=== PATIENT | male | born 1950 | race American Indian/Alaskan Native ===

== ENCOUNTER 2017-03-08 12:20 | Outpatient (CLI) | payer OTHER ==
--- NOTE | 2017-03-08 16:42 | XRay Report ---
LUMBAR SPINE WITH OBLIQUES 5 VIEWS: 03/08/17 12:20:00 CLINICAL: Back pain and prostate cancer. FINDINGS: Mild levoscoliosis centered at L1-2. Normal vertebral body height and alignment. Osteophytes are most prominent at L1 to, L2-3 and L4-5. Lower lumbar facet joint sclerosis. The pedicles are intact. No suspicious bone lesion is identified. Mild calcification of the abdominal aorta. IMPRESSION: Scoliosis and multilevel degenerative change, greatest at L2-3 and L1-2. No evidence of metastasis.
== END 2017-03-08 12:21 | disposition home or self-care (01) ==
LOC: XRAY 12:20
PROVIDERS: ATTEND Internal Medicine
DX: M47.896 Other spondylosis, lumbar region (principal); M41.86 Other forms of scoliosis, lumbar region; M25.78 Osteophyte, vertebrae; Z68.30 Body mass index [BMI] 30.0-30.9, adult; I70.0 Atherosclerosis of aorta; C61 Malignant neoplasm of prostate
CPT/HCPCS: 72110

== ENCOUNTER 2018-12-26 07:27 | Emergency (ER) | payer OTHER ==
[2018-12-26] MEDS ORDERED: ANTIVERT PO ONE (10:22)
[2018-12-26] MEDS ORDERED: NACL 0.9% 1000 ML 1,000 ML IV ONE (10:22)
--- NOTE | 2018-12-26 10:27 | Emergency Department Report ---
ED Dizziness HPI - General Chief Complaint: Dizziness Stated Complaint: DIZZY Time Seen by Provider: 12/26/18 10:13 Source: patient Mode of arrival: Stretcher Limitations: No Limitations - History of Present Illness Initial Comments: 68-year-old male presents to ED with complaint of dizziness since this morning. Patient states he went to bed last night feeling okay. However, when he awoke at 6 AM this morning, he felt as if the room was spinning. The patient states when he got up from bed to walk to the bathroom, his dizziness was slightly improved. However when he laid down in bed again he felt as if the room was spinning again. Patient denies headache. Denies nausea or vomiting. Denies recent URI symptoms or congestion. MD Complaint: dizziness -: This morning Timing: awoke with symptoms Description: "room spinning" History of Same: No History of Trauma: No Severity: moderate Worsens With: position Associated Symptoms: denies: chest pain, confusion, fever/chills, shortness of breath - Related Data Previous Rx's Medication Instructions Recorded Last Taken Type Ibuprofen [Motrin 600 MG tab] 600 mg PO Q8H #15 tablet 10/20/18 Unknown Rx Sulfamethoxazole/Trimethoprim 1 each PO BID #14 tablet 10/20/18 Unknown Rx [Bactrim DS TAB] Amoxicillin/K Clav Tab [Augmentin 1 tab PO Q12HR 10 Days #20 tab 12/26/18 Unknown Rx 875 mg] Meclizine [Antivert] 25 mg PO TID PRN #20 tablet 12/26/18 Unknown Rx Allergies Allergy/AdvReac Type Severity Reaction Status Date / Time No Known Allergies Allergy Verified 12/26/18 07:40 ED Review of Systems ROS: Stated complaint: DIZZY Other details as noted in HPI Comment: All other systems reviewed and negative Constitutional: denies: chills, fever ENT: denies: congestion Respiratory: denies: shortness of breath Cardiovascular: denies: chest pain, palpitations Gastrointestinal: denies: nausea, vomiting Neurological: vertigo. denies: headache, weakness, numbness, paresthesias ED Past Medical Hx - Past Medical History Hx Diabetes: Yes - Surgical History Additional Surgical History: 2009 Prostate removal cx - Social History Smoking Status: Never Smoker Substance Use Type: None - Medications Home Medications: Home Medications Medication Instructions Recorded Confirmed Last Taken Type Ibuprofen [Motrin 600 MG tab] 600 mg PO Q8H #15 tablet 10/20/18 Unknown Rx Sulfamethoxazole/Trimethoprim 1 each PO BID #14 tablet 10/20/18 Unknown Rx [Bactrim DS TAB] Amoxicillin/K Clav Tab [Augmentin 1 tab PO Q12HR 10 Days #20 tab 12/26/18 Unknown Rx 875 mg] Meclizine [Antivert] 25 mg PO TID PRN #20 tablet 12/26/18 Unknown Rx ED Physical Exam - General Limitations: No Limitations General appearance: alert, in no apparent distress - Head Head exam: Present: atraumatic, normocephalic - Eye Eye exam: Present: normal appearance. Absent: nystagmus - ENT ENT exam: Present: mucous membranes moist - Neck Neck exam: Present: normal inspection - Respiratory Respiratory exam: Present: normal lung sounds bilaterally. Absent: respiratory distress - Cardiovascular Cardiovascular Exam: Present: regular rate, normal rhythm - GI/Abdominal GI/Abdominal exam: Present: soft. Absent: distended, tenderness - Extremities Exam Extremities exam: Present: normal inspection - Neurological Exam Neurological exam: Present: alert, oriented X3, CN II-XII intact, normal gait. Absent: motor sensory deficit - Psychiatric Psychiatric exam: Present: normal affect, normal mood - Skin Skin exam: Present: warm, dry, intact, normal color ED Course Vital Signs 12/26/18 12/26/18 12/26/18 07:37 07:40 07:45 Temperature 98.2 F Pulse Rate 67 67 60 Respiratory 12 16 12 Rate Blood Pressure 129/67 133/63 O2 Sat by Pulse 97 96 Oximetry 12/26/18 12/26/18 12/26/18 08:00 08:15 08:30 Temperature Pulse Rate 57 L 59 L 67 Respiratory 13 16 13 Rate Blood Pressure 123/58 128/59 147/68 O2 Sat by Pulse 95 99 100 Oximetry 12/26/18 12/26/18 12/26/18 08:34 08:46 09:00 Temperature Pulse Rate 57 L 66 Respiratory 18 14 12 Rate Blood Pressure 147/57 131/63 O2 Sat by Pulse 98 99 Oximetry 12/26/18 12/26/18 12/26/18 09:15 09:30 09:45 Temperature Pulse Rate 71 67 65 Respiratory 10 L 12 12 Rate Blood Pressure 137/83 128/75 132/84 O2 Sat by Pulse 100 98 100 Oximetry 12/26/18 12/26/18 12/26/18 10:00 10:16 10:30 Temperature Pulse Rate 64 72 67 Respiratory 15 16 14 Rate Blood Pressure 137/72 144/78 139/79 O2 Sat by Pulse 98 100 98 Oximetry 12/26/18 12/26/18 12/26/18 10:45 11:00 11:15 Temperature Pulse Rate 64 67 65 Respiratory 10 L 13 10 L Rate Blood Pressure 122/73 133/76 129/85 O2 Sat by Pulse Oximetry 12/26/18 12/26/18 11:30 11:46 Temperature Pulse Rate 66 64 Respiratory 16 17 Rate Blood Pressure 136/76 142/72 O2 Sat by Pulse Oximetry - Reevaluation(s) Reevaluation #1: 12/26/18 13:42 Patient feeling much better following meclizine and IV fluids. Patient ambulated around ER w/ RN. No gait abnormalities, pt ambulated well. Denies any dizziness at this time. CT shows acute sinusitis. Patient sounds nasally congested when speaking to him. Will d/c home with antibiotics and meclizine. ED Medical Decision Making - Lab Data Result diagrams: 12/26/18 10:26 12/26/18 10:26 - EKG Data -: EKG Interpreted by Me EKG shows normal: sinus rhythm, axis, intervals, QRS complexes, ST-T waves Rate: normal - EKG Data Interpretation: no acute changes - Radiology Data Radiology results: report reviewed, image reviewed - Differential Diagnosis CVA, benign positional vertigo, sinusitis Critical care attestation.: If time is entered above; I have spent that time in minutes in the direct care of this critically ill patient, excluding procedure time. ED Disposition Clinical Impression: Vertigo, Sinusitis, acute Disposition: DC-01 TO HOME OR SELFCARE Is pt being admited?: No Condition: Stable Instructions: Sinusitis (ED), Benign Paroxysmal Positional Vertigo (ED) Prescriptions: Amoxicillin/K Clav Tab [Augmentin 875 mg] 1 tab PO Q12HR 10 Days #20 tab Meclizine [Antivert] 25 mg PO TID PRN #20 tablet PRN Reason: Vertigo Referrals: EMMA VARELA MD [Primary Care Provider] - 3-5 Days PRIMARY CARE, [Referring] - 3-5 Days ANGELA LORD MD [Staff Physician] - 3-5 Days Time of Disposition: 13:46
[2018-12-26 10:41] LABS: Basophils # (Auto) 0.1 K/mm3 (0.0-0.1); Basophils % (Auto) 0.9 % (0.0-1.8); Eosinophils # (Auto) 0.1 K/mm3 (0.0-0.4); Eosinophils % (Auto) 1.7 % (0.0-4.3); Hematocrit 41.7 % (35.5-45.6); Hemoglobin 13.4 gm/dl (11.8-15.2); Lymphocytes # (Auto) 1.5 K/mm3 (1.2-5.4); Lymphocytes % (Auto) 21.8 % (13.4-35.0); Mean Corpuscular HGB Conc 32 % (32-34); Mean Corpuscular Volume 77 fl (84-94); Monocytes # (Auto) 0.7 K/mm3 (0.0-0.8); Monocytes % (Auto) 9.7 % (0.0-7.3); Platelet Count 212 K/mm3 (140-440); Red Blood Count 5.41 M/mm3 (3.65-5.03); Red Cell Distribution Width 15.3 % (13.2-15.2)
[2018-12-26 10:57] LABS: BUN/Creatinine Ratio 19; Blood Urea Nitrogen 17 mg/dL (9-20); Calcium 9.3 mg/dL (8.4-10.2); Hemolysis Index 6
[2018-12-26 10:59] LABS: Bilirubin,Urine NEG (Negative); Blood,Urine SM (Negative); Color,Urine Yellow (Yellow); Mucus,Urine FEW /HPF; Protein,Urine <15 mg/dL mg/dL (Negative); Urobilinogen,Urine < 2.0 mg/dL (<2.0)
[2018-12-26 11:56] VITALS: BP 142/72
--- NOTE | 2018-12-26 13:33 | Cat Scan Report ---
FINAL REPORT EXAM: CT HEAD WO CONTRAST HISTORY: HEADACHE TECHNIQUE: CT examination of the head without IV contrast PRIORS: None. FINDINGS: Scattered slight mucosal thickening ethmoid and maxillary sinuses. Slight mucosal thickening sphenoid sinuses. Suggestion of prior maxillary sinus surgery with partial absence of the medial wall bilater ally. Small fluid level present in the anterior right ethmoid sinus and posterior right sphenoid sinu s. Bone windows demonstrate no acute fracture. There is ventricular and sulcal prominence compatible with global cerebrocortical atrophy. The brain contains no mass, mass effect, hemorrhage, or acute infarct. There is no extra-axial intracranial bleed, brain bleed, or midline shift. IMPRESSION: No acute CVA, intracranial bleed, or brain mass Multifocal paranasal sinus mucosal thickening with suggestion of prior maxillary sinus surgery Nonspecific small fluid levels in the anterior right ethmoid sinus and posterior right sphenoid sinus may reflect acute sinusitis
== END 2018-12-26 13:56 | disposition home or self-care (01) ==
LOC: ED 07:27
DX: R42 Dizziness and giddiness (principal); J01.90 Acute sinusitis, unspecified
CPT/HCPCS: 36415; 70450; 80048; 81001; 85025; 93005; 93010; 96360; 99284; J7030

== ENCOUNTER 2019-01-27 11:07 | Emergency (ER) | payer MEDICARE, OTHER ==
--- NOTE | 2019-01-27 12:07 | Emergency Department Report ---
ED Dizziness HPI - General Chief Complaint: Dizziness Stated Complaint: DIZZINESS Time Seen by Provider: 01/27/19 11:52 Source: patient Mode of arrival: Ambulatory Limitations: No Limitations - History of Present Illness Initial Comments: Patient is 68 years old male with history of diabetes. Patient presented to the emergency room complaining of dizziness that is started two month ago. Patient stated that dizziness is started when he awakened in the middle of the night when he went to the bathroom. Patient denied any chest pain or shortness of b reath. No weakness numbness or tingling sensation. Patient was seen here a few weeks ago for the same complaint for which workup which included a CT of head was negative. Patient follow up with his ENT doctor. Patient walking in the hallway without any difficulty or dizziness. MD Complaint: dizziness -: month(s) (2) Timing: sudden onset Description: "room spinning" History of Same: Yes History of Trauma: No Severity: mild Improves With: remaining still Associated Symptoms: denies other symptoms - Related Data Previous Rx's Medication Instructions Recorded Last Taken Type Ibuprofen [Motrin 600 MG tab] 600 mg PO Q8H #15 tablet 10/20/18 Unknown Rx Sulfamethoxazole/Trimethoprim 1 each PO BID #14 tablet 10/20/18 Unknown Rx [Bactrim DS TAB] Amoxicillin/K Clav Tab [Augmentin 1 tab PO Q12HR 10 Days #20 tab 12/26/18 Unknown Rx 875 mg] Meclizine [Antivert] 25 mg PO TID PRN #20 tablet 12/26/18 Unknown Rx Prednisone [predniSONE 10 mg 10 mg PO .TAPER #1 tab.ds.pk 01/27/19 Unknown Rx (6-Day Pack, 21 Tabs)] Allergies Allergy/AdvReac Type Severity Reaction Status Date / Time No Known Allergies Allergy Verified 01/27/19 11:08 ED Review of Systems ROS: Stated complaint: DIZZINESS Other details as noted in HPI Comment: All other systems reviewed and negative Constitutional: denies: chills, fever ENT: congestion Respiratory: denies: cough, orthopnea, shortness of breath, SOB with exertion, SOB at rest, wheezing Cardiovascular: denies: chest pain, palpitations Gastrointestinal: denies: abdominal pain, nausea, vomiting Neurological: vertigo. denies: headache, weakness, numbness, paresthesias, confusion ED Past Medical Hx - Past Medical History Hx Diabetes: Yes - Surgical History Additional Surgical History: 2009 Prostate removal cx - Social History Smoking Status: Never Smoker Substance Use Type: None - Medications Home Medications: Home Medications Medication Instructions Recorded Confirmed Last Taken Type Ibuprofen [Motrin 600 MG tab] 600 mg PO Q8H #15 tablet 10/20/18 Unknown Rx Sulfamethoxazole/Trimethoprim 1 each PO BID #14 tablet 10/20/18 Unknown Rx [Bactrim DS TAB] Amoxicillin/K Clav Tab [Augmentin 1 tab PO Q12HR 10 Days #20 tab 12/26/18 Unknown Rx 875 mg] Meclizine [Antivert] 25 mg PO TID PRN #20 tablet 12/26/18 Unknown Rx Prednisone [predniSONE 10 mg 10 mg PO .TAPER #1 tab.ds.pk 01/27/19 Unknown Rx (6-Day Pack, 21 Tabs)] ED Physical Exam - General Limitations: No Limitations General appearance: alert, in no apparent distress - Head Head exam: Present: atraumatic, normocephalic, normal inspection - Eye Eye exam: Present: normal appearance, PERRL - ENT ENT exam: Present: mucous membranes dry, mucous membranes moist, other (serous otitis media) - Neck Neck exam: Present: normal inspection. Absent: tenderness, meningismus - Respiratory Respiratory exam: Present: normal lung sounds bilaterally - Cardiovascular Cardiovascular Exam: Present: regular rate, normal rhythm, normal heart sounds - GI/Abdominal GI/Abdominal exam: Present: soft, normal bowel sounds. Absent: distended, tenderness, guarding, rigid, organomegaly, mass, bruit, pulsatile mass, hernia - Extremities Exam Extremities exam: Present: normal inspection, full ROM, normal capillary refill. Absent: tenderness, pedal edema, joint swelling - Back Exam Back exam: Present: normal inspection, full ROM. Absent: tenderness, CVA tenderness (R), CVA tenderness (L), muscle spasm, paraspinal tenderness, vertebral tenderness - Neurological Exam Neurological exam: Present: alert, oriented X3, CN II-XII intact, normal gait, reflexes normal. Absent: abnormal gait - Psychiatric Psychiatric exam: Present: normal mood - Skin Skin exam: Present: warm, intact, normal color ED Course Vital Signs 01/27/19 11:22 Temperature 97.8 F Pulse Rate 87 Respiratory 20 Rate Blood Pressure 156/91 O2 Sat by Pulse 99 Oximetry ED Medical Decision Making - Medical Decision Making Patient is 68 years old male with history of diabetes. Patient presented to the emergency room complaining of dizziness that is started. Patient stated that dizziness is started when he awakened in the middle of them I explained to the bathroom. Patient denied any chest pain or shortness of breath. No weakness numbness or tingling sensation. Patient was seen here a few weeks ago for the same complaint for which workup which included a CT of head was negative. Patient follow up with his ENT doctor. Patient walking in the hallway without any difficulty or dizziness. Previous medical records reviewed. Patient exam showed a left serous otitis media. I will start patient on prednisone and advised the patient to follow-up with his primary care physician and if symptoms continued patient need to follow up with A neurologist. Critical care attestation.: If time is entered above; I have spent that time in minutes in the direct care of this critically ill patient, excluding procedure time. ED Disposition Clinical Impression: Dizziness, Otitis media, acute serous Disposition: - TO HOME OR SELFCARE Is pt being admited?: No Condition: Stable Instructions: Dizziness (ED) Prescriptions: Prednisone [predniSONE 10 mg (6-Day Pack, 21 Tabs)] 10 mg PO .TAPER #1 tab.ds.pk Referrals: [facility] [Primary Care Provider] - 3-5 Days Forms: Work/School Release Form(ED)
== END 2019-01-27 12:19 | disposition home or self-care (01) ==
LOC: ED 11:07
CPT/HCPCS: 99282

== ENCOUNTER 2019-02-02 01:16 | Emergency (ER) | payer OTHER ==
--- NOTE | 2019-02-02 07:06 | Cat Scan Report ---
PROCEDURE: CT HEAD/BRAIN WO CON TECHNIQUE: Routine axial imaging was obtained of the brain without IV contrast. HISTORY: persistent vertigo COMPARISONS: 12/26/2018 FINDINGS: There is no evidence of acute stroke or hemorrhage. The ventricular system is appropriate in size and is symmetric. The sinuses revealed postsurgical changes involving the ethmoid air cells and maxillar y sinuses. The mastoid air cells are well pneumatized. The calvarium appears intact. IMPRESSION: No acute intracranial process. This document is electronically signed by José Esparza MD., February 02 2019 07:03:42 AM ET
[2019-02-02 07:10] LABS: Basophils % (Auto) 0.5 % (0.0-1.8); Eosinophils # (Auto) 0.1 K/mm3 (0.0-0.4); Hematocrit 37.9 % (35.5-45.6); Hemoglobin 12.5 gm/dl (11.8-15.2); Lymphocytes # (Auto) 2.2 K/mm3 (1.2-5.4); Lymphocytes % (Auto) 32.2 % (13.4-35.0); Mean Corpuscular HGB Conc 33 % (32-34); Mean Corpuscular Volume 78 fl (84-94); Monocytes # (Auto) 0.7 K/mm3 (0.0-0.8); Monocytes % (Auto) 9.7 % (0.0-7.3); Platelet Count 204 K/mm3 (140-440); Red Blood Count 4.89 M/mm3 (3.65-5.03); Red Cell Distribution Width 15.5 % (13.2-15.2)
--- NOTE | 2019-02-02 07:20 | XRay Report ---
PROCEDURE: XR CHEST 1V AP TECHNIQUE: A portable upright view of the chest was obtained. HISTORY: posterior CP COMPARISONS: 05/07/2010 FINDINGS: The heart size and mediastinum appear normal. The lungs are clear. Pleural fluid is not seen. IMPRESSION: No acute cardiopulmonary process.. This document is electronically signed by José Esparza MD., February 02 2019 07:18:03 AM ET
[2019-02-02 07:37] LABS: Alanine Aminotransferase 18 units/L (7-56); Albumin 3.6 g/dL (3.9-5)
[2019-02-02 07:38] LABS: Bilirubin,Direct < 0.2 mg/dL (0-0.2)
[2019-02-02 07:42] LABS: BUN/Creatinine Ratio 17; Blood Urea Nitrogen 19 mg/dL (9-20); Calcium 8.6 mg/dL (8.4-10.2); Hemolysis Index 3
[2019-02-02 09:07] LABS: Bilirubin,Urine NEG (Negative); Blood,Urine NEG (Negative); Color,Urine Straw (Yellow); Mucus,Urine FEW /HPF; Protein,Urine <15 mg/dL mg/dL (Negative); Urobilinogen,Urine < 2.0 mg/dL (<2.0); WBC,Urine < 1.0 /HPF (0.0-6.0)
[2019-02-02 09:21] LABS: Amphetamine Screen,Urine PRESUMPTIVE NEGATIVE; Benzodiazepines Screen,Urine PRESUMPTIVE NEGATIVE; Cannabinoid Screen,Urine PRESUMPTIVE NEGATIVE; Cocaine Screen,Urine PRESUMPTIVE NEGATIVE; Methadone Screen,Urine PRESUMPTIVE NEGATIVE; Opiate Screen,Urine PRESUMPTIVE NEGATIVE
--- NOTE | 2019-02-02 09:49 | Emergency Department Report ---
ED General Adult HPI - General Chief complaint: Dizziness Stated complaint: DIZZINESS Time Seen by Provider: 02/02/19 06:00 Source: patient Mode of arrival: Ambulatory Limitations: Language Barrier - History of Present Illness Initial comments: This is a 68 year old man who was seen here on 6th weakness and vertigo. He states that his symptoms have worsened over the last 24 hours. He states he's been checking his blood sugar because he was previously told he was at type II diabetic and it has been normal as of yesterday. He does not take medicines. He is a somewhat difficult historian but does provide ample history. Eventually he shows me that he has taken all but one of his prednisone pills. He states he has experienced some spinning but there is no spinning now. He does not report any focal weakness or numbness. He denies headache. He denies any facial weakness or tingling. He denies any difficulty with his speech. He is able to walk. He is mainly describing dizziness and vague symptoms. -: Gradual, days(s) Severity scale (0 -10): 0 Consistency: now resolved Associated Symptoms: denies other symptoms - Related Data Previous Rx's Medication Instructions Recorded Last Taken Type Ibuprofen [Motrin 600 MG tab] 600 mg PO Q8H #15 tablet 10/20/18 Unknown Rx Sulfamethoxazole/Trimethoprim 1 each PO BID #14 tablet 10/20/18 Unknown Rx [Bactrim DS TAB] Amoxicillin/K Clav Tab [Augmentin 1 tab PO Q12HR 10 Days #20 tab 12/26/18 Unknown Rx 875 mg] Meclizine [Antivert] 25 mg PO TID PRN #20 tablet 12/26/18 Unknown Rx Prednisone [predniSONE 10 mg 10 mg PO .TAPER #1 tab.ds.pk 01/27/19 Unknown Rx (6-Day Pack, 21 Tabs)] Allergies Allergy/AdvReac Type Severity Reaction Status Date / Time No Known Allergies Allergy Verified 01/27/19 11:08 ED Review of Systems ROS: Stated complaint: DIZZINESS Other details as noted in HPI Constitutional: other (dizziness). denies: chills, fever Eyes: denies: eye pain, eye discharge, vision change ENT: denies: ear pain, throat pain Respiratory: denies: cough, shortness of breath, wheezing Cardiovascular: denies: chest pain, palpitations Endocrine: no symptoms reported Gastrointestinal: denies: abdominal pain, nausea, diarrhea Genitourinary: denies: urgency, dysuria Musculoskeletal: denies: back pain, joint swelling, arthralgia Skin: denies: rash, lesions Neurological: denies: headache, weakness, paresthesias Psychiatric: denies: anxiety, depression Hematological/Lymphatic: denies: easy bleeding, easy bruising ED Past Medical Hx - Past Medical History Hx Diabetes: Yes Additional medical history: Vertigo, Sleep Apnea, Hearing loss, Sinusitis, earlier visit for "benign positional vertigo" - Surgical History Additional Surgical History: 2009 Prostate removal cx - Social History Smoking Status: Never Smoker Substance Use Type: None - Medications Home Medications: Home Medications Medication Instructions Recorded Confirmed Last Taken Type Ibuprofen [Motrin 600 MG tab] 600 mg PO Q8H #15 tablet 10/20/18 Unknown Rx Sulfamethoxazole/Trimethoprim 1 each PO BID #14 tablet 10/20/18 Unknown Rx [Bactrim DS TAB] Amoxicillin/K Clav Tab [Augmentin 1 tab PO Q12HR 10 Days #20 tab 12/26/18 Unknown Rx 875 mg] Meclizine [Antivert] 25 mg PO TID PRN #20 tablet 12/26/18 Unknown Rx Prednisone [predniSONE 10 mg 10 mg PO .TAPER #1 tab.ds.pk 01/27/19 Unknown Rx (6-Day Pack, 21 Tabs)] ED Physical Exam - General Limitations: Language Barrier (mild but able to get ample history) General appearance: alert, in no apparent distress - Head Head exam: Present: atraumatic, normocephalic - Eye Eye exam: Present: normal appearance - ENT ENT exam: Present: mucous membranes moist - Neck Neck exam: Present: normal inspection. Absent: tenderness, meningismus - Respiratory Respiratory exam: Present: normal lung sounds bilaterally. Absent: respiratory distress - Cardiovascular Cardiovascular Exam: Present: regular rate, normal rhythm. Absent: systolic murmur, diastolic murmur, rubs, gallop - GI/Abdominal GI/Abdominal exam: Present: soft, normal bowel sounds. Absent: distended, te nderness, guarding, rebound, rigid - Rectal Rectal exam: Present: deferred - Extremities Exam Extremities exam: Present: normal inspection - Back Exam Back exam: Present: normal inspection - Neurological Exam Neurological exam: Present: alert, oriented X3, CN II-XII intact, other (cerebellar testing was normal). Absent: motor sensory deficit - Psychiatric Psychiatric exam: Present: normal affect, normal mood - Skin Skin exam: Present: warm, dry, intact, normal color. Absent: rash ED Course Vital Signs 02/02/19 02/02/19 02/02/19 01:21 01:39 05:45 Temperature 98.1 F 98.1 F Pulse Rate 68 69 62 Respiratory 18 16 14 Rate Blood Pressure 140/58 140/58 135/73 O2 Sat by Pulse 98 98 Oximetry 02/02/19 02/02/19 02/02/19 06:00 06:15 06:30 Temperature Pulse Rate 60 71 61 Respiratory 14 12 13 Rate Blood Pressure 135/76 135/76 137/74 O2 Sat by Pulse 97 99 96 Oximetry - Reevaluation(s) Reevaluation #1: Patient was found to have a glucose of 200. I believe this is likely related to his prednisone. He believes his symptoms have gotten worse with the prednisone. While it may be reasonable to do further evaluation of the patient's dizziness and the primary care setting I do not think that hospitalization is indicated. He is advised to stop the prednisone as seek further workup with his primary care physician. 02/02/19 11:06 Reevaluation #2: Patient's symptoms have completely resolved in the emergency department and did not recur. 02/02/19 11:09 ED Medical Decision Making - Lab Data Result diagrams: 02/02/19 06:13 02/02/19 06:13 Laboratory Results - last 24 hr 02/02/19 02/02/19 02/02/19 06:13 06:13 06:13 WBC 6.9 RBC 4.89 Hgb 12.5 Hct 37.9 MCV 78 L MCH 26 L MCHC 33 RDW 15.5 H Plt Count 204 Lymph % (Auto) 32.2 [place] % (Auto) 9.7 H Eos % (Auto) 2.0 Baso % (Auto) 0.5 Lymph # 2.2 [place] # 0.7 Eos # 0.1 Baso # 0.0 Seg Neutrophils % 55.6 Seg Neutrophils # 3.8 Sodium 140 Potassium 3.8 Chloride 105.8 Carbon Dioxide 26 Anion Gap 12 BUN 19 Creatinine 1.1 Estimated GFR > 60 BUN/Creatinine Ratio 17 Glucose 200 H Calcium 8.6 Magnesium 2.10 Total Bilirubin < 0.20 Direct Bilirubin < 0.2 Indirect Bilirubin 0.0 AST 10 ALT 18 Alkaline Phosphatase 83 Troponin T < 0.010 Total Protein 6.3 Albumin 3.6 L Albumin/Globulin Ratio 1.3 Urine Color Urine Turbidity Urine pH Ur Specific [place] Urine Protein Urine Glucose (UA) Urine Ketones Urine Blood Urine Nitrite Urine Bilirubin Urine Urobilinogen Ur Leukocyte Esterase Urine WBC (Auto) Urine RBC (Auto) Urine Mucus Urine Opiates Screen Urine Methadone Screen Ur Barbiturates Screen Ur Phencyclidine Scrn Ur Amphetamines Screen U Benzodiazepines Scrn Urine Cocaine Screen U Marijuana (THC) Screen 02/02/19 02/02/19 08:51 08:51 WBC RBC Hgb Hct MCV MCH MCHC RDW Plt Count Lymph % (Auto) [place] % (Auto) Eos % (Auto) Baso % (Auto) Lymph # [place] # Eos # Baso # Seg Neutrophils % Seg Neutrophils # Sodium Potassium Chloride Carbon Dioxide Anion Gap BUN Creatinine Estimated GFR BUN/Creatinine Ratio Glucose Calcium Magnesium Total Bilirubin Direct Bilirubin Indirect Bilirubin AST ALT Alkaline Phosphatase Troponin T Total Protein Albumin Albumin/Globulin Ratio Urine Color Straw Urine Turbidity Clear Urine pH 6.0 Ur Specific [place] 1.019 Urine Protein <15 mg/dl Urine Glucose (UA) Neg Urine Ketones Neg Urine Blood Neg Urine Nitrite Neg Urine Bilirubin Neg Urine Urobilinogen < 2.0 Ur Leukocyte Esterase Neg Urine WBC (Auto) < 1.0 Urine RBC (Auto) 3.0 Urine Mucus Few Urine Opiates Screen Presumptive negative Urine Methadone Screen Presumptive negative Ur Barbiturates Screen Presumptive negative Ur Phencyclidine Scrn Presumptive negative Ur Amphetamines Screen Presumptive negative U Benzodiazepines Scrn Presumptive negative Urine Cocaine Screen Presumptive negative U Marijuana (THC) Screen Presumptive negative - Radiology Data Radiology results: report reviewed (CT the head no acute process no prior stroke) Critical care attestation.: If time is entered above; I have spent that time in minutes in the direct care of this critically ill patient, excluding procedure time. ED Disposition Clinical Impression: Dizziness, Hyperglycemia Adverse effects of medication Qualifiers: Encounter type: initial encounter Qualified Code(s): T50.905A - Adverse effect of unspecified drugs, medicaments and biological substances, initial encounter Disposition: DC-01 TO HOME OR SELFCARE Is pt being admited?: No Does the pt Need Aspirin: No Condition: Stable Instructions: Hyperglycemia, Non-Diabetic (ED) Additional Instructions: Stop prednisone. I would advise that you take 2 baby aspirin a day. I would advise that you get further workup from your primary care physician. Typical workup would include such things as a carotid ultrasound test etc. Return to the emergency department if you have any acute symptoms of spinning headache problems with coordination or walking. Referrals: EDMOND MODI MD [Primary Care Provider] - 3-5 Days Time of Disposition: 11:07
[2019-02-02 12:20] VITALS: BP 118/72
== END 2019-02-02 12:32 | disposition home or self-care (01) ==
LOC: ED 01:16
DX: T50.905A Adverse effect of unspecified drugs, medicaments and biological substances, initial encounter (principal); E11.65 Type 2 diabetes mellitus with hyperglycemia; X58.XXXA Exposure to other specified factors, initial encounter
CPT/HCPCS: 36415; 70450; 71045; 80048; 80076; 80307; 81001; 82962; 83735; 84484; 85025; 93005; 93010

== ENCOUNTER 2019-07-06 18:47 | Emergency (ER) | payer SELFPAY ==
[2019-07-06 19:36] VITALS: BP 132/75
--- NOTE | 2019-07-06 19:40 | Emergency Department Report ---
Chief Complaint: Fever Stated Complaint: FEVER Time Seen by Provider: 07/06/19 19:35 - HPI History of Present Illness: 68 y/o male comes in for 1 month of right shoulder strain. Patient denies any trauma. Patient admits that his PCP had given him pain medication but has lost his insurance. Patient has no other complaints. - ROS Review of Systems: Right shoulder pain. - Exam Vital Signs: Vital Signs 07/06/19 19:34 Temperature 98.9 F Pulse Rate 84 Respiratory 18 Rate Blood Pressure 132/75 O2 Sat by Pulse 99 Oximetry Physical Exam: right shoulder FROM. No obvious deformity. MSE screening note: Focused history and physical exam performed. Due to findings the following was ordered: Recommend patient to take over the counter pain medication. Follow up with a Primary care provider. ED Disposition for MSE Clinical Impression: Right shoulder strain Qualifiers: Encounter type: initial encounter Qualified Code(s): S46.911A - Strain of unspecified muscle, fascia and tendon at shoulder and upper arm level, right arm, initial encounter Trapezius muscle strain Qualifiers: Encounter type: initial encounter Laterality: right Qualified Code(s): S46.811A - Strain of other muscles, fascia and tendons at shoulder and upper arm level, right arm, initial encounter Disposition: DC-01 TO HOME OR SELFCARE Is pt being admited?: No Does the pt Need Aspirin: No Condition: Stable Instructions: Muscle Strain (ED) Additional Instructions: Take over the counter Tylenol or Ibuprofen as needed for pain. Follow up with a primary care provider. Referrals: [facility] [Provider Group] - 3-5 Days
== END 2019-07-06 20:00 | disposition home or self-care (01) ==
LOC: ED 18:47
DX: S46.811A Strain of other muscles, fascia and tendons at shoulder and upper arm level, right arm, initial encounter (principal); X58.XXXA Exposure to other specified factors, initial encounter; Y93.89 Activity, other specified; Y92.89 Other specified places as the place of occurrence of the external cause; Y99.8 Other external cause status
CPT/HCPCS: 99282